=== PATIENT | female | born 1990 | race African-American/Black ===

== ENCOUNTER 2017-01-18 14:35 | Emergency (ER) | payer MEDICAID ==
[~2017-01-18] VITALS: Ht 165.1 cm; Wt 115.2 kg
[~2017-01-18 14:35] MED LIST: BEPREVE10 ML OP; CLARITIN-D 241 EACH PO; CLINDAMYCIN HC150 MG ORAL; CYCLOBENZAPRINE10 MG ORAL; IBUPROFEN600 MG ORAL; IBUPROFEN600 MG PO; NKM; PROAIR HFA8.5 GM INH
[2017-01-18] MEDS ORDERED: Norco 5mg/325mg tab ORAL ONE (16:00)
--- NOTE | 2017-01-18 16:34 | Emergency Room Report ---
History of Present Illness General Chief Complaint: Pain Source: Patient Present Illness HPI 26-year-old female presents emergency department complaining of bilateral posterior ankle pain progressive in nature over the course of 2 days. Patient also reports that today she felt a pop in the left ankle and had moderate increase in pain. Patient reports that she works on her feet and since 12 hours a day walking. Patient states that she believes pain increase slowly over time exacerbated with walking. Patient denies bruising patient reports mild swelling in the left ankle patient rates her pain as 7/10 in severity and is constant in nature patient also reports tenderness to the posterior ankles bilaterally. Patient denies previous injury. denies recent antibiotic use. Denies numbness tingling or loss of sensation or gross motor movements of the extremities, incontinence of bowel or bladder. Denies CP, Palpitations, LOC, AMS , dizziness, Changes in Vision, Sensation, paresthesias, or a sudden severe headache. Allergies: Coded Allergies: No Known Allergies (Verified Allergy, Unknown, 11/21/06) Patient History Past Medical History: see triage record Past Surgical History: none Pertinent Family History: none Last Menstrual Period: 01/09/17 Now: No Immunizations: UTD Reviewed Nursing Documentation: PMH: Agreed, PSxH: Agreed Nursing Documentation-PMH Past Medical History: No History, Except For Hx Asthma: Yes Review of Systems All Other Systems: negative except mentioned in HPI Physical Exam Vital Signs Date Time Temp Pulse Resp B/P Pulse Ox O2 Delivery O2 Flow Rate FiO2 01/18/17 14:59 97.3 77 14 102/64 98 Sp02 EP Interpretation: reviewed, normal General Appearance: no apparent distress, alert, GCS 15, non-toxic Head: normocephalic, atraumatic Eyes: bilateral eye PERRL, bilateral eye normal inspection ENT: hearing grossly normal, normal pharynx, no angioedema, normal voice Neck: full range of motion, supple/symm/no masses Respiratory: lungs clear, normal breath sounds, speaking full sentences Cardiovascular #1: regular rate, rhythm, no edema Cardiovascular #2: 2+ dorsalis pedis (R), 2+ dorsalis pedis (L) Musculoskeletal: back normal, gait/station normal, normal range of motion, non- tender, tender - TTp to the achillies tendons bilaterally and their insertion point on the heel, no bony ttp , no increased laxity. Neurologic: alert, oriented x3, responsive, motor strength/tone normal, sensory intact, speech normal Psychiatric: judgement/insight normal, memory normal, mood/affect normal, no suicidal/homicidal ideation Skin: normal color, no rash, warm/dry, well hydrated Lymphatic: no adenopathy Medical Decision Making PA Attestation Dr. Matos is my supervising Physician whom patient management has been discussed with. Diagnostic Impression: Primary Impression: Achilles tendinitis of both lower extremities Additional Impression: Left ankle sprain Qualified Codes: S93.402A - Sprain of unspecified ligament of left ankle, initial encounter ER Course 26-year-old female presents emergency department complaining of bilateral posterior ankle pain progressive in nature over the course of 2 days. Patient also reports that today she felt a pop in the left ankle and had moderate increase in pain. Patient reports that she works on her feet and since 12 hours a day walking. Patient states that she believes pain increase slowly over time exacerbated with walking. Patient denies bruising patient reports mild swelling in the left ankle patient rates her pain as 7/10 in severity and is constant in nature patient also reports tenderness to the posterior ankles bilaterally. Patient denies previous injury. Ddx considered but are not limited to Fracture, dislocation, contusion, Sprain/ Strain/Spasm, tendonitis Vital signs: are WNL, pt. is afebrile H&PE are most consistent with tendonitis will r/o skeletal injury ORDERS: - X-ray left ankle 3 views - negative for fx, Dislocation, or significant soft tissue injury, per official radiology report. ED INTERVENTIONS: - [place] PO -[place] wrap applied by property technician. Pt. remains neurovascularly intact. DISCHARGE: At this time pt. is stable for d/c to home. Will provide printed patient care instructions, and any necessary prescriptions. Care plan and follow up instructions have been discussed with the patient prior to discharge. Last Vital Signs Date Time Temp Pulse Resp B/P Pulse Ox O2 Delivery O2 Flow Rate FiO2 01/18/17 14:59 97.3 77 14 102/64 98 Disposition: HOME, SELF-CARE Condition: Stable Scripts Ibuprofen* (MOTRIN*) 600 Mg Tablet 600 MG ORAL THREE TIMES A DAY, #30 TAB 0 Refills Prov: Maribell Martínez 01/18/17 Referrals: [facility] STRONG,REFERRING (PCP) Departure Forms: Return to Work Return to Work Date: Jan 20, 2017 Work Restrictions: No Heavy Lifting, No Prolonged Standing, Desk Work Only Return to Full Activity: Feb 03, 2017 Patient Instructions: Achilles Tendinitis Additional Instructions: Take medications as directed. Follow up with PCP in 3-5 days Return sooner to ED if new symptoms occur, or current symptoms become worse. - Please note that this Emergency Department Report was dictated using [employer] operations consultant technology software, occasionally this can lead to erroneous entry secondary to interpretation by the dictation equipment. Maribell Martínez Jan 18, 2017 16:34
[2017-01-18] MEDS ORDERED: IBUPROFEN600 MG ORAL (16:51)
--- NOTE | 2017-01-18 17:04 | Diagnostic Imaging Report ---
Indication: PAIN Technique: 3 views of the left ankle Comparison: none Findings: No acute fractures. No dislocations. Joint spaces are preserved. Normal mineralization. No radiopaque foreign body. Impression: Negative
[2017-01-18 17:20] VITALS: BP 115/78
== END 2017-01-18 17:20 | disposition home or self-care (01) ==
LOC: EMR 15:21
DX: M76.62 Achilles tendinitis, left leg (principal); M76.61 Achilles tendinitis, right leg; X58.XXXA Exposure to other specified factors, initial encounter; S93.402A Sprain of unspecified ligament of left ankle, initial encounter; Y92.9 Unspecified place or not applicable; J45.909 Unspecified asthma, uncomplicated
CPT/HCPCS: 29540; 99283

== ENCOUNTER 2017-01-23 06:52 | Emergency (ER) | payer MEDICAID ==
[~2017-01-23] VITALS: Ht 165.1 cm; Wt 115.2 kg
[2017-01-23 07:17] VITALS: BP 128/81
--- NOTE | 2017-01-23 07:54 | Emergency Room Report ---
History of Present Illness General Chief Complaint: Earache Source: Patient Present Illness HPI This patient states that for the past few days she has had congestion and cough. She states that over the past day she has developed some left ear pain. She denies fever or chills. She has had sputum production. She denies headache or neck pain. She denies abdominal pain. She denies sore throat. She has no other complaints. Allergies: Coded Allergies: No Known Allergies (Verified , 01/23/17) Patient History Past Medical History: see triage record, asthma Past Surgical History: none Social History: Denies: alcohol use, drug use, smoking Last Menstrual Period: 2 weeks ago Now: No : 1 Para: 0 Reviewed Nursing Documentation: PMH: Agreed, PSxH: Agreed Nursing Documentation-PMH Past Medical History: No History, Except For Hx Asthma: Yes - bronchitis Review of Systems All Other Systems: negative except mentioned in HPI Physical Exam Vital Signs Date Time Temp Pulse Resp B/P Pulse Ox O2 Delivery O2 Flow Rate FiO2 01/23/17 07:07 98.2 89 16 128/81 97 01/23/17 07:17 Room Air Sp02 EP Interpretation: reviewed, normal General Appearance: no apparent distress, alert, GCS 15, non-toxic Head: normocephalic, atraumatic Eyes: bilateral eye PERRL, bilateral eye normal inspection ENT: hearing grossly normal, normal pharynx, no angioedema, normal voice, TMs + canals normal, uvula midline, moist mucus membranes Neck: full range of motion, supple/symm/no masses Respiratory: chest non-tender, no respiratory distress, no retraction, no accessory muscle use, speaking full sentences, wheezing Cardiovascular #1: regular rate, rhythm, no edema Gastrointestinal: normal bowel sounds, non tender, soft, non-distended, no guarding, no rebound Rectal: deferred Musculoskeletal: back normal, gait/station normal, normal range of motion, non- tender Neurologic: alert, oriented x3, responsive, motor strength/tone normal, sensory intact, speech normal Psychiatric: judgement/insight normal, memory normal, mood/affect normal, no suicidal/homicidal ideation Skin: normal color, no rash, warm/dry, well hydrated Medical Decision Making Diagnostic Impression: Primary Impression: URI (upper respiratory infection) Additional Impression: Asthma exacerbation ER Course This patient has a clinical presentation with upper respiratory tract infection. The evaluation was very reassuring with only slight wheezing on lung exam, no respiratory distress, normal pulse oximetry. I am not concerned for pneumonia in this patient. This is most likely viral and will not need antibiotic therapy. The patient does have some slight wheezing in a history of asthma. I will treat supportively with decongestants, albuterol inhaler, steroid and antihistamines. No emergency medical condition was identified. The patient was given close return precautions and followup instructions. Last Vital Signs Date Time Temp Pulse Resp B/P Pulse Ox O2 Delivery O2 Flow Rate FiO2 01/23/17 07:17 98.3 89 16 128/81 97 Room Air Disposition: HOME, SELF-CARE Condition: Improved MICHAEL KOWALSKI D.O. Jan 23, 2017 07:54
[2017-01-23] MEDS ORDERED: PSEUDOEPHEDRINE30 MG PO (07:58)
[2017-01-23] MEDS ORDERED: PREDNISONE20 MG ORAL (07:58)
[2017-01-23] MEDS ORDERED: CLARITIN10 M2 ORAL (07:58)
[2017-01-23] MEDS ORDERED: ALBUTEROL SULF8.5 GM INH (07:58)
[2017-01-23 08:11] VITALS: BP 126/74
== END 2017-01-23 08:10 | disposition home or self-care (01) ==
LOC: EMR 08:01
DX: J06.9 Acute upper respiratory infection, unspecified (principal); J45.901 Unspecified asthma with (acute) exacerbation
CPT/HCPCS: 99284

== ENCOUNTER 2018-01-21 12:24 | Emergency (ER) | payer MEDICAID ==
[~2018-01-21] VITALS: Ht 165.1 cm; Wt 115.7 kg
[~2018-01-21 12:24] MED LIST changes: +ALBUTEROL SULF8.5 GM INH; +CLARITIN10 M2 ORAL; +PREDNISONE20 MG ORAL; +PSEUDOEPHEDRINE30 MG PO
[2018-01-21] MEDS ORDERED: TRIAMCINOLONE A15 G1 TP (13:06)
[2018-01-21] MEDS ORDERED: ATHLETE S FOOT TP (13:06)
--- NOTE | 2018-01-21 13:06 | Emergency Room Report ---
History of Present Illness General Chief Complaint: Skin Rash/Abscess Present Illness HPI 27 yo female patient presents to ER complaining of reflux and rash on foot x2 weeks, Patient reports she wears sandals.. Patient complains of itching on foot; states tried OTC medication without relief of symptoms. Denies pain, burning, loss of sensation. Denies open wound or bleeding. Also reports acid reflux. States she eats lots of spicy foods. Denies fever, chest pain, SOB. Denies vomiting, or coughing up blood. (Chalino Manrique) Allergies: Coded Allergies: No Known Allergies (Verified , 01/23/17) Patient History Past Medical History: see triage record Last Menstrual Period: 1 week ago Reviewed Nursing Documentation: PMH: Agreed, PSxH: Agreed (Chalino Manrique) Nursing Documentation-PMH Hx Asthma: Yes - bronchitis (Chalino Manriqeu) Review of Systems All Other Systems: negative except mentioned in HPI (Chalino Manrique.Jaskaran) Physical Exam Vital Signs Date Time Temp Pulse Resp B/P (MAP) Pulse Ox O2 Delivery O2 Flow Rate FiO2 01/21/18 12:36 99.0 106 18 111/70 96 Room Air 99.0 Sp02 EP Interpretation: reviewed, normal General Appearance: well appearing, no apparent distress, alert, GCS 15 Head: normocephalic, atraumatic Eyes: bilateral eye normal inspection, bilateral eye PERRL ENT: hearing grossly normal, normal pharynx, no angioedema, normal voice, TMs + canals normal, uvula midline, moist mucus membranes Respiratory: lungs clear, normal breath sounds, no rhonchi, no respiratory distress, no accessory muscle use, no wheezing, speaking full sentences Cardiovascular #1: regular rate, rhythm, no edema Cardiovascular #2: 2+ dorsalis pedis (R), 2+ dorsalis pedis (L) Gastrointestinal: non tender, soft, no mass, non-distended, no guarding, no rebound Musculoskeletal: back normal, digits/nails normal, gait/station normal, normal range of motion, non-tender Neurologic: alert, oriented x3, responsive, motor strength/tone normal, sensory intact Psychiatric: mood/affect normal Skin: rash - right foot, on webspace between big toe and second toe on dorsum of foot, no TTP, no open drainage, no blisters, no linear burrows (Chalino Manrique) Medical Decision Making PA Attestation Dr. Ross is my supervising Physician whom patient management has been discussed with. (Chalino Manrique) Diagnostic Impression: Primary Impression: Rash and other nonspecific skin eruption Additional Impression: Acid reflux ER Course Pt. presents to the ED c/o rash and acid reflux. Ddx considered but are not limited to atopic dermatitis, contact dermatitis, tinea pedis. Patient reports history of heart burn symptoms after spicy food meals, never been diagnosed with GERD. Vital signs: are WNL, pt. is afebrile ER COURSE: Patient instructed that foot likely contact dermatitis, do not wear current sandals anymore. Will provide treatment for contact dermatitis and possible fungal infection. Followup with PCP and discuss referral to dermatology. Patient reports she will schedule appointment today. Patient advised on methods to avoid reflux symptoms. Will provide patient with Pepcid until followup with PCP. Patient instructed to followup with primary care provider for further treatment and referral to GI specialist. Return to ER immediately for chest pain, SOB, vomiting blood. Patient rash seen and evaluated by Dr. Ross, agrees with treatment and plan. DISCHARGE: Rx provided for Pepcid for acid reflux. Rx provided for Tolnaftate cream Rx provided for Triamcinolone cream At this time pt. is stable for d/c to home. Patient is resting comfortable, in no acute distress, nontoxic appearing, laughing and talking without difficulty. Will provide printed patient care instructions, and any necessary prescriptions. Care plan and follow up instructions have been discussed with the patient prior to discharge. Patient provided with list of healthcare clinics to establish primary care physician. Patient instructed to follow-up with primary care provider in 3 - 5 days. Patient questions asked and answered. Patient reports understanding and agreement to treatment plan. ER precautions given. Patient instructed to return to ER immediately for any new or worsening of symptoms including but not limited to increasing SOB, persistent fever. (Chalino Manrique) Last Vital Signs Date Time Temp Pulse Resp B/P (MAP) Pulse Ox O2 Delivery O2 Flow Rate FiO2 01/21/18 12:36 99.0 106 18 111/70 96 Room Air 99.0 (Chalino Manrique.Jaskaran) Last Vital Signs Date Time Temp Pulse Resp B/P (MAP) Pulse Ox O2 Delivery O2 Flow Rate FiO2 01/21/18 13:30 99.0 18 111/70 96 Room Air 99.0 01/21/18 13:30 66 (Rangel Ross M.D.) Disposition: HOME, SELF-CARE Condition: Stable Scripts Famotidine (PEPCID AC) 10 Mg Tablet 10 MG PO DAILY for 14 Days, #14 TAB Prov: Chalino Manrique 01/21/18 Triamcinolone Acetonide (TRIAMCINOLONE ACETONIDE) 15 Gm Cream..g. 15 GM TP BID for 10 Days, GM Prov: Chalino Manrique.A. 01/21/18 Tolnaftate (Athlete's Foot) 30 Gm Cream..g. 30 GM TP BID for 10 Days, GM Prov: Chalino Manrique.A. 01/21/18 Patient Instructions: Athlete's Foot, [id number], Contact Dermatitis, Easy-to -Read, Heartburn, [id number] Additional Instructions: Followup with primary care provider in 3 -5 days. Take medications as directed. Avoid spicy foods, elevate head of bed at night, no late night meals. Do no wear [employer] slides. Followup with dermatology. Patient questions asked and answered. ER precautions given, patient instructed to return to ER immediately for any new or worsening of symptoms. Chalino Manrique Jan 21, 2018 13:06 Rangel Ross M.D. Jan 23, 2018 02:27
[2018-01-21] MEDS ORDERED: PEPCID AC10 MG PO (13:10)
[2018-01-21 13:30] VITALS: BP_SYST 111; BP_SYST 121; BP_DIAS 70; BP_DIAS 77
== END 2018-01-21 13:40 | disposition home or self-care (01) ==
LOC: EMR 13:37
DX: R21 Rash and other nonspecific skin eruption (principal); K21.9 Gastro-esophageal reflux disease without esophagitis
CPT/HCPCS: 99283

== ENCOUNTER 2018-01-29 09:27 | Emergency (ER) | payer MEDICAID ==
[~2018-01-29] VITALS: Ht 167.6 cm; Wt 111.1 kg
[~2018-01-29 09:27] MED LIST changes: +ATHLETE S FOOT TP; +PEPCID AC10 MG PO; +TRIAMCINOLONE A15 G1 TP
--- NOTE | 2018-01-29 10:19 | Emergency Room Report ---
History of Present Illness General Chief Complaint: Nausea, Vomiting, and Diarrhea Source: Patient Present Illness HPI 27-year-old female with asthma p/w nausea and vomiting for 2 days Pt reports n/v, more then 10 episodes of nonbloody vomiting, now it's yellow in color, no diarrhea. Denies abdominal pain but complains of some back spasms Denies fever, chills. No hx of abdominal surgeries. No hx of endoscopies/colonoscopies. States that she uses marijuana chronically, states that this has happened before but this time is worse than before Allergies: Coded Allergies: No Known Allergies (Verified , 01/23/17) Patient History Past Medical History: see triage record Past Surgical History: none Pertinent Family History: none Last Menstrual Period: 2 weeks Now: No Reviewed Nursing Documentation: PMH: Agreed, PSxH: Agreed Nursing Documentation-PMH Past Medical History: No History, Except For Hx Asthma: Yes - bronchitis Review of Systems All Other Systems: negative except mentioned in HPI Physical Exam Vital Signs Date Time Temp Pulse Resp B/P (MAP) Pulse Ox O2 Delivery O2 Flow Rate FiO2 01/29/18 09:29 97.8 56 20 114/64 99 Room Air 97.9 Sp02 EP Interpretation: reviewed, normal General Appearance: alert, GCS 15, non-toxic, mild distress Head: normocephalic, atraumatic Eyes: bilateral eye normal inspection, bilateral eye PERRL, bilateral eye EOMI ENT: normal ENT inspection, normal pharynx, normal voice, moist mucus membranes Neck: normal inspection, full range of motion, supple Respiratory: normal inspection, lungs clear, normal breath sounds, no respiratory distress, no retraction, no wheezing, speaking full sentences, chest symmetrical Cardiovascular #1: normal inspection, regular rate, rhythm, no edema, normal capillary refill Cardiovascular #2: 2+ radial (R), 2+ radial (L) Gastrointestinal: normal inspection, non tender, soft, non-distended, no guarding Musculoskeletal: normal inspection, back normal, normal range of motion, non- tender Neurologic: normal inspection, alert, oriented x3, responsive, motor strength/ tone normal, sensory intact, normal gait, speech normal Psychiatric: normal inspection, judgement/insight normal, memory normal Skin: normal inspection, normal color, no rash, warm/dry, well hydrated, normal turgor Medical Decision Making Diagnostic Impression: Primary Impression: Nausea and vomiting ER Course 27-year-old female with nausea and vomiting for 3 days Differential Diagnosis: Gastritis, gastroenteritis, cyclic vomiting syndrome induced from marijuana At this time abdomen is soft nontender, not likely to have acute intra- abdominal surgical pathology, will hold CT for now. Plan: Basic labs Zofran, IVF ER course: Patient has remained stable during ED stay. No furhter episodes vomiting fluids given no abd pain Disposition: Patient is to be discharged to home. Prescriptions given are Zofran Patient is instructed to follow up with their primary care doctor within 5 days. Instructed to refrain from marijuana use Strict return precautions discussed with patient such as fever, chills, worsening/severe abdominal pain, nausea, vomiting, black or bloody stools, which may indicate severe illness. Patient verbalizes understanding and agrees with plan. Please note that this Emergency Department Report was dictated using [employer] s[employer] operator technology software, occasionally this can lead to erroneous entry secondary to interpretation by the dictation equipment Laboratory Tests Test 01/29/18 09:55 01/29/18 10:05 01/29/18 11:00 White Blood Count 8.4 K/UL (4.8-10.8) Red Blood Count 4.85 M/UL (4.20-5.40) Hemoglobin 13.3 G/DL (12.0-16.0) Hematocrit 40.9 % (37.0-47.0) Mean Corpuscular Volume 84 FL (80-99) Mean Corpuscular Hemoglobin 27.4 PG (27.0-31.0) Mean Corpuscular Hemoglobin Concent 32.4 G/DL (32.0-36.0) Red Cell Distribution Width 12.9 % (11.6-14.8) Platelet Count 295 K/UL (150-450) Mean Platelet Volume 8.1 FL (6.5-10.1) Neutrophils (%) (Auto) 74.2 % (45.0-75.0) Lymphocytes (%) (Auto) 20.4 % (20.0-45.0) Monocytes (%) (Auto) 3.7 % (1.0-10.0) Eosinophils (%) (Auto) 0.2 % (0.0-3.0) Basophils (%) (Auto) 1.5 % (0.0-2.0) Urine Color Yellow Urine Appearance Clear Urine pH 8 (4.5-8.0) Urine Specific Hiram 1.010 (1.005-1.035) Urine Protein 1+ (NEGATIVE) H Urine Glucose (UA) Negative (NEGATIVE) Urine Ketones Negative (NEGATIVE) Urine Occult Blood Negative (NEGATIVE) Urine Nitrite Negative (NEGATIVE) Urine Bilirubin Negative (NEGATIVE) Urine Urobilinogen Normal MG/DL (0.0-1.0) Urine Leukocyte Esterase 1+ (NEGATIVE) H Urine RBC 0-2 /HPF (0 - 2) Urine WBC 2-4 /HPF (0 - 2) Urine Squamous Epithelial Cells Few /LPF (NONE/OCC) Urine Bacteria Occasional /HPF (NONE) Urine HCG, Qualitative Negative (NEGATIVE) Sodium Level 140 MMOL/L (136-145) Potassium Level 4.2 MMOL/L (3.5-5.1) Chloride Level 106 MMOL/L (98-107) Carbon Dioxide Level 26 MMOL/L (21-32) Anion Gap 8 mmol/L (5-15) Blood Urea Nitrogen 14 mg/dL (7-18) Creatinine 0.7 MG/DL (0.55-1.30) Estimate Glomerular Filtration Rate > 60 mL/min (>60) Glucose Level 99 MG/DL (74-106) Calcium Level 8.0 MG/DL (8.5-10.1) L Total Bilirubin 0.2 MG/DL (0.2-1.0) Aspartate Amino Transferase (AST) 16 U/L (15-37) Alanine Aminotransferase (ALT) 27 U/L (12-78) Alkaline Phosphatase 60 U/L (46-116) Total Protein 7.1 G/DL (6.4-8.2) Albumin 3.3 G/DL (3.4-5.0) L Globulin 3.8 g/dL Albumin/Globulin Ratio 0.9 (1.0-2.7) L Lipase 55 U/L (73-393) L Last Vital Signs Date Time Temp Pulse Resp B/P (MAP) Pulse Ox O2 Delivery O2 Flow Rate FiO2 01/29/18 09:29 97.8 56 20 114/64 99 Room Air 97.9 Disposition: HOME, SELF-CARE Condition: Improved Scripts Ondansetron Odt* (ZOFRAN ODT*) 4 Mg Tab.rapdis 4 MG ORAL Q6H Y for Nausea & Vomiting, #15 TAB 0 Refills Prov: Jason Worthington M.D. 01/29/18 Jason Worthington M.D. Jan 29, 2018 10:19
[2018-01-29 10:22] LABS: APPEARANCE,URINE CLEAR; BILIRUBIN, URINE NEGATIVE (NEGATIVE); GLUCOSE, URINE (UA) NEGATIVE (NEGATIVE); KETONES,URINE NEGATIVE (NEGATIVE); LEUKOCYTE ESTERASE ,URINE 1+ (NEGATIVE); NITRITE,URINE NEGATIVE (NEGATIVE); PH,URINE 8 (4.5-8.0); PROTEIN,URINE 1+ (NEGATIVE); UROBILINOGEN,URINE NORMAL MG/DL (0.0-1.0)
[2018-01-29 10:24] LABS: BASOPHILS % (AUTO) 1.5 % (0.0-2.0); EOSINOPHILS % (AUTO) 0.2 % (0.0-3.0); HEMATOCRIT 40.9 % (37.0-47.0); HEMOGLOBIN 13.3 G/DL (12.0-16.0); LYMPHOCYTES % (AUTO) 20.4 % (20.0-45.0); MEAN CORPUSCULAR VOLUME 84 FL (80-99); MONOCYTES % (AUTO) 3.7 % (1.0-10.0); NEUTROPHILS % (AUTO) 74.2 % (45.0-75.0); PLATELET COUNT 295 K/UL (150-450); RED BLOOD COUNT 4.85 M/UL (4.20-5.40); RED CELL DISTRIBUTION WIDTH 12.9 % (11.6-14.8); WHITE BLOOD COUNT 8.4 K/UL (4.8-10.8)
[2018-01-29 10:30] LABS: COLOR,URINE YELLOW
[2018-01-29 11:19] LABS: ANION GAP 8 mmol/L (5-15); BLOOD UREA NITROGEN 14 mg/dL (7-18); CARBON DIOXIDE 26 MMOL/L (21-32); CHLORIDE 106 MMOL/L (98-107); CREATININE 0.7 MG/DL (0.55-1.30); POTASSIUM 4.2 MMOL/L (3.5-5.1); SODIUM 140 MMOL/L (136-145)
[2018-01-29 11:23] LABS: ALANINE AMINOTRANSFERASE 27 U/L (12-78); ALBUMIN 3.3 G/DL (3.4-5.0); ALBUMIN/GLOBULIN RATIO 0.9 (1.0-2.7); ALKALINE PHOSPHATASE 60 U/L (46-116); ASPARTATE AMINO TRANSFERASE 16 U/L (15-37); BILIRUBIN,TOTAL 0.2 MG/DL (0.2-1.0)
[2018-01-29] MEDS ORDERED: ZOFRAN ODT4 MG ORAL (11:25)
[2018-01-29 11:50] VITALS: BP 114/64
== END 2018-01-29 11:53 | disposition home or self-care (01) ==
LOC: EMR 11:48
DX: R12 Heartburn (principal)
CPT/HCPCS: 36415; 80053; 81003; 81025; 83690; 85025; 96361; 96374; 99284; J2405

== ENCOUNTER 2018-06-05 11:41 | Emergency (ER) | payer MEDICAID ==
[~2018-06-05] VITALS: Ht 167.6 cm; Wt 108.9 kg
[~2018-06-05 11:41] MED LIST changes: +ZOFRAN ODT4 MG ORAL
[2018-06-05 12:21] VITALS: BP 115/80
--- NOTE | 2018-06-05 13:04 | Emergency Room Report ---
History of Present Illness General Chief Complaint: Female Urogenital Problems Source: Patient, Medical Record Present Illness HPI 27-year-old female with no medical problems other than asthma presents with intermittent vaginal bleeding since yesterday she reports 2 pads a day, and she is concerned because she just finished her cycle one week ago. She reports mild crampy pain more in the left lower quadrant and right, reports it's mild to moderate and intermittent only. She denies abnormal vaginal discharge, denies urinary complaints, fevers, diarrhea constipation any other symptoms Allergies: Coded Allergies: No Known Allergies (Verified , 01/23/17) Patient History Past Medical History: see triage record Last Menstrual Period: 05/29/18 : 1 Para: 0 Reviewed Nursing Documentation: PMH: Agreed; PSxH: Agreed Nursing Documentation-PMH Hx Asthma: Yes - bronchitis Review of Systems All Other Systems: negative except mentioned in HPI Physical Exam Vital Signs Date Time Temp Pulse Resp B/P (MAP) Pulse Ox O2 Delivery O2 Flow Rate FiO2 06/05/18 12:05 98.2 92 18 113/79 96 Room Air 98.2 Sp02 EP Interpretation: reviewed, normal General Appearance: no apparent distress, alert, non-toxic Head: normocephalic Eyes: bilateral eye normal inspection, bilateral eye PERRL, bilateral eye EOMI ENT: normal ENT inspection, hearing grossly normal, normal pharynx, no angioedema, normal voice, moist mucus membranes Neck: normal inspection, full range of motion, supple, supple/symm/no masses Respiratory: chest non-tender, lungs clear, normal breath sounds, chest symmetrical, palpation of chest normal Cardiovascular #1: normal peripheral pulses, regular rate, rhythm Cardiovascular #2: 2+ radial (R), 2+ radial (L) Gastrointestinal: normal inspection, non tender, soft, no mass, no guarding, no rebound Rectal: deferred Genitourinary: normal inspection, no CVA tenderness Musculoskeletal: back normal, gait/station normal, normal range of motion, non- tender, no calf tenderness Neurologic: alert, responsive, account underwriter III-XII nml as tested, motor strength/tone normal, sensory intact, speech normal Psychiatric: judgement/insight normal, memory normal, mood/affect normal Skin: normal color, no rash, warm/dry, normal turgor Lymphatic: no adenopathy Medical Decision Making Diagnostic Impression: Primary Impression: Incomplete miscarriage Additional Impression: Ectopic ER Course 27-year-old female, hCG level of 28 presenting with vaginal bleeding, very minimal pelvic cramping, her last was. Phonic ago, she is likely undergone a spontaneous miscarriage, but will need a repeat hCG in 48-72 hours, she was explained this understood to either return to the ED in 48 hours or follow-up with her primary OB. CT/MRI/US Diagnostic Results CT/MRI/US Diagnostic Results : Imaging Test Ordered: pelvic US Impression no IUP, but no masses, no free fluid Last Vital Signs Date Time Temp Pulse Resp B/P (MAP) Pulse Ox O2 Delivery O2 Flow Rate FiO2 06/05/18 12:21 98.2 85 18 115/80 96 Room Air 98.2 Disposition: HOME, SELF-CARE Condition: Stable Referrals: [facility],REFERRING (PCP) JAYLIN VENCES M.D Jun 05, 2018 13:04
[2018-06-05 13:05] LABS: APPEARANCE,URINE SLIGHTLY CLOUDY; BILIRUBIN, URINE NEGATIVE (NEGATIVE); COLOR,URINE PALE YELLOW; GLUCOSE, URINE (UA) NEGATIVE (NEGATIVE); KETONES,URINE NEGATIVE (NEGATIVE); LEUKOCYTE ESTERASE ,URINE 1+ (NEGATIVE); NITRITE,URINE NEGATIVE (NEGATIVE); PH,URINE 6 (4.5-8.0); PROTEIN,URINE 2+ (NEGATIVE); UROBILINOGEN,URINE NORMAL MG/DL (0.0-1.0)
[2018-06-05 13:26] LABS: BASOPHILS % (AUTO) 1.4 % (0.0-2.0); EOSINOPHILS % (AUTO) 2.3 % (0.0-3.0); HEMATOCRIT 38.6 % (37.0-47.0); HEMOGLOBIN 12.3 G/DL (12.0-16.0); LYMPHOCYTES % (AUTO) 34.7 % (20.0-45.0); MEAN CORPUSCULAR VOLUME 84 FL (80-99); MONOCYTES % (AUTO) 4.5 % (1.0-10.0); NEUTROPHILS % (AUTO) 57.1 % (45.0-75.0); PLATELET COUNT 308 K/UL (150-450); RED BLOOD COUNT 4.62 M/UL (4.20-5.40); RED CELL DISTRIBUTION WIDTH 13.1 % (11.6-14.8); WHITE BLOOD COUNT 8.9 K/UL (4.8-10.8)
[2018-06-05 13:30] LABS: ANION GAP 9 mmol/L (5-15); BLOOD UREA NITROGEN 14 mg/dL (7-18); CALCIUM 8.9 MG/DL (8.5-10.1); CARBON DIOXIDE 26 MMOL/L (21-32); CHLORIDE 104 MMOL/L (98-107); CREATININE 0.8 MG/DL (0.55-1.30); POTASSIUM 4.3 MMOL/L (3.5-5.1); SODIUM 139 MMOL/L (136-145)
[2018-06-05 13:35] LABS: ALANINE AMINOTRANSFERASE 25 U/L (12-78); ALBUMIN 3.4 G/DL (3.4-5.0); ALBUMIN/GLOBULIN RATIO 0.8 (1.0-2.7); ALKALINE PHOSPHATASE 55 U/L (46-116); ASPARTATE AMINO TRANSFERASE 14 U/L (15-37); BILIRUBIN,TOTAL 0.3 MG/DL (0.2-1.0)
[2018-06-05 15:16] VITALS: BP 115/80
--- NOTE | 2018-06-05 15:16 | Diagnostic Imaging Report ---
Indication: Vaginal spotting and bleeding, positive test Technique: Transabdominal and transvaginal images Comparison: none Findings: Uterus measures 7.6 cm length by 3.4 cm AP. No myometrial abnormality. Endometrium measures 5 mm thick. No intrauterine gestational sac demonstrated. The right ovary measures 3.2 cm in length. The left ovary measures 2.7 cm length. Both ovaries demonstrate normal blood flow, no mass. No free cul-de-sac fluid Impression: No intrauterine demonstrated. Given positive test (reportedly beta hCG 28) findings could represent very early and therefore not yet visible intrauterine , spontaneous , or sonographically occult ectopic . Recommend correlation with serial beta hCGs, consider follow-up sonography as clinically indicated
== END 2018-06-05 15:19 | disposition home or self-care (01) ==
LOC: EMR 12:27
DX: O03.4 Incomplete spontaneous abortion without complication (principal); O00.90 Unspecified ectopic pregnancy without intrauterine pregnancy
CPT/HCPCS: 36415; 76801; 80053; 81003; 83690; 84702; 85025; 86900; 86901; 99284

== ENCOUNTER 2018-06-07 14:29 | Emergency (ER) | payer MEDICAID ==
[~2018-06-07] VITALS: Ht 167.6 cm; Wt 108.9 kg
[2018-06-07 15:32] VITALS: BP 119/73
--- NOTE | 2018-06-07 16:44 | Emergency Room Report ---
History of Present Illness General Chief Complaint: General Complaint Source: Patient Present Illness HPI 27-year-old female presents to the emergency department for repeat hCG quantitative lab work. Patient was seen here 2 days ago for irregular vaginal bleeding and she had a positive test. Her hCG was 25 and ultrasound was not able to identify a or ectopic. Patient has returned to check to see where hCG trend is going. Patient reports that she is actively attempting to become she is not taking control for over 2 years. She is . The patient states that her spotting has for the most part resolved and she is no longer having lower abdominal cramping since her last visit. She states that she was not able to make a timely appointment with an OB /GROUP CARE WORKER.Denies N/V/F/C. Allergies: Coded Allergies: No Known Allergies (Verified , 01/23/17) Patient History Past Medical History: see triage record Past Surgical History: none Pertinent Family History: none Last Menstrual Period: 05/29/18 : 1 Para: 0 Reviewed Nursing Documentation: PMH: Agreed; PSxH: Agreed Nursing Documentation-PMH Past Medical History: No History, Except For Hx Asthma: Yes - bronchitis Review of Systems All Other Systems: negative except mentioned in HPI Physical Exam Vital Signs Date Time Temp Pulse Resp B/P (MAP) Pulse Ox O2 Delivery O2 Flow Rate FiO2 06/07/18 14:58 98.6 94 18 119/73 95 Room Air 98.6 Sp02 EP Interpretation: reviewed, normal General Appearance: no apparent distress, alert, GCS 15, non-toxic Head: normocephalic, atraumatic ENT: hearing grossly normal, normal voice Neck: full range of motion Respiratory: lungs clear, normal breath sounds, speaking full sentences Cardiovascular #1: regular rate, rhythm Gastrointestinal: normal bowel sounds, non tender, soft Rectal: deferred Genitourinary: no CVA tenderness, adnexa normal, deferred Musculoskeletal: back normal, gait/station normal, normal range of motion, non- tender Neurologic: alert, oriented x3, responsive, motor strength/tone normal, sensory intact, normal gait, speech normal, grossly normal Psychiatric: judgement/insight normal Skin: normal color, no rash, warm/dry, well hydrated Lymphatic: no adenopathy Medical Decision Making PA Attestation Dr. Matos is my supervising Physician whom patient management has been discussed with. Diagnostic Impression: Primary Impression: Vaginal bleeding Additional Impressions: Abnormal human chorionic gonadotropin (hCG) Spontaneous miscarriage ER Course 27-year-old female presents to the emergency department for repeat hCG quantitative lab work. Patient was seen here 2 days ago for irregular vaginal bleeding and she had a positive test. Her hCG was 25 and ultrasound was not able to identify a or ectopic. Patient has returned to check to see where hCG trend is going. Patient reports that she is actively attempting to become she is not taking control for over 2 years. She is . The patient states that her spotting has for the most part resolved and she is no longer having lower abdominal cramping since her last visit. She states that she was not able to make a timely appointment with an OB /GROUP CARE WORKER.Denies N/V/F/C. Ddx considered but are not limited to: Fibroid, ectopic , Fibroid, Spontaneous , Vital signs: are WNL, pt. is afebrile H&PE are most consistent with: [ ] spotting during early , Inevitable , Spontaneous ORDERS: -serum Hcg Quant: 15 ED INTERVENTIONS: None at this time. -Discussed results with attending physician and has patient hCG is less than 25 and trending downward this patient is stable for outpatient follow-up and does not require urgent repeated hCG measuring. I discussed the results of laboratory testing with this patient and I encouraged her to follow-up with an WEB ENGINEER. Since this patient is actively attempting to become I recommended that she begin taking vitamins preemptively. Patient is also given ED return precautions for worsening or new symptoms. The patient and her have been verbalized their understanding and agreement with this proposed treatment plan. DISCHARGE: At this time pt. is stable for d/c to home. Will provide printed patient care instructions, and any necessary prescriptions. Care plan and follow up instructions have been discussed with the patient prior to discharge. Labs Test 06/07/18 15:30 Human Chorionic Gonadotropin, Quant 15 mIU/mL (1-6) Last Vital Signs Date Time Temp Pulse Resp B/P (MAP) Pulse Ox O2 Delivery O2 Flow Rate FiO2 06/07/18 15:32 98.6 79 18 119/73 95 Room Air 98.6 Disposition: HOME, SELF-CARE Condition: Stable Scripts Vit #91/Fe Fum/Fa/Dha ( + DHA COMBO PACK) 1 Each Combo..pkg 1 EACH PO DAILY, #1 PACK 2 Refills Prov: Maribell Martínez 06/07/18 Referrals: Mary Kate STRONG,REFERRING (PCP) Departure Forms: Return to Work Return to Work Date: Jun 11, 2018 Work Restrictions: None Other Restrictions: excuse from 06/07/18 Return to Full Activity: Jun 11, 2018 Patient Instructions: Folic Acid in Additional Instructions: Take medications as directed. Follow up with an OBGYN within 3 days, even if your symptoms have resolved. Let them know your first Hcg was 25, and repeat was 15. Return sooner to ED if new symptoms occur, or current symptoms become worse. - Please note that this Emergency Department Report was dictated using [employer] distributor technology software, occasionally this can lead to erroneous entry secondary to interpretation by the dictation equipment. Maribell Martínez Jun 07, 2018 16:44
[2018-06-07] MEDS ORDERED: PRENATAL + DHA1 EAC1 PO (17:20)
[2018-06-07 17:29] VITALS: BP 107/69
[2018-06-07 17:30] VITALS: BP 119/73
== END 2018-06-07 17:31 | disposition home or self-care (01) ==
LOC: EMR 15:19
DX: O03.9 Complete or unspecified spontaneous abortion without complication (principal)
CPT/HCPCS: 36415; 84702; 99283

== ENCOUNTER 2018-10-28 09:24 | Emergency (ER) | payer MEDICAID ==
[~2018-10-28] VITALS: Ht 167.6 cm; Wt 120.2 kg
[~2018-10-28 09:24] MED LIST changes: +PRENATAL + DHA1 EAC1 PO
[2018-10-28 10:18] LABS: APPEARANCE,URINE SLIGHTLY CLOUDY; BILIRUBIN, URINE NEGATIVE (NEGATIVE); COLOR,URINE PALE YELLOW; GLUCOSE, URINE (UA) NEGATIVE (NEGATIVE); KETONES,URINE NEGATIVE (NEGATIVE); LEUKOCYTE ESTERASE ,URINE 2+ (NEGATIVE); NITRITE,URINE NEGATIVE (NEGATIVE); PH,URINE 7 (4.5-8.0); PROTEIN,URINE NEGATIVE (NEGATIVE); UROBILINOGEN,URINE NORMAL MG/DL (0.0-1.0)
--- NOTE | 2018-10-28 11:48 | Emergency Room Report ---
History of Present Illness General Chief Complaint: Complications Source: Patient Present Illness HPI This patient states she's been getting intermittent nausea and some vomiting over the past week. She was concerned she may be . She took a home test that was positive. She denies abdominal pain. She states the first day of her last menstrual period was the second of last month. She denies vaginal bleeding. She denies abnormal vaginal discharge. She denies dysuria or hematuria. She has no other complaints. Allergies: Coded Allergies: No Known Allergies (Verified , 01/23/17) Patient History Past Medical History: see triage record, asthma Social History: Denies: smoking, alcohol use, drug use Last Menstrual Period: 11-7 Now: Yes Reviewed Nursing Documentation: PMH: Agreed; PSxH: Agreed Nursing Documentation-PMH Past Medical History: No History, Except For Hx Asthma: Yes - bronchitis Review of Systems All Other Systems: negative except mentioned in HPI Physical Exam Vital Signs Date Time Temp Pulse Resp B/P (MAP) Pulse Ox O2 Delivery O2 Flow Rate FiO2 10/28/18 09:40 99.1 83 18 113/71 98 Room Air Sp02 EP Interpretation: reviewed, normal General Appearance: no apparent distress, alert, GCS 15, non-toxic Head: normocephalic, atraumatic Eyes: bilateral eye normal inspection, bilateral eye PERRL ENT: hearing grossly normal, normal pharynx, no angioedema, normal voice Neck: full range of motion, supple/symm/no masses Respiratory: no respiratory distress, no retraction, no accessory muscle use, speaking full sentences Gastrointestinal: no guarding, no rebound Rectal: deferred Musculoskeletal: back normal, gait/station normal, normal range of motion, non- tender Neurologic: alert, oriented x3, responsive, motor strength/tone normal, sensory intact, speech normal Psychiatric: judgement/insight normal, memory normal, mood/affect normal, no suicidal/homicidal ideation Skin: normal color, no rash, warm/dry, well hydrated Medical Decision Making Diagnostic Impression: Primary Impression: UTI (urinary tract infection) Additional Impression: ER Course This patient is positive for . Her hCG is over 26,000. She has no pain and so I do not suspect ectopic. She is instructed to follow-up with an OB or her primary care physician. She is also instructed to obtain vitamins. Urinalysis is contaminated, however, given the patient is I will go ahead and treat with a course of Keflex as a precaution. I will also give the patient dissolvable Zofran for her nausea. She is given close return precautions and follow-up instructions. Please note that this Emergency Department Report was dictated using [employer] extension agent technology software, occasionally this can lead to erroneous entry secondary to interpretation by the dictation equipment. Laboratory Tests Test 10/28/18 09:50 10/28/18 10:40 Urine Color Pale yellow Urine Appearance Slightly cloudy Urine pH 7 (4.5-8.0) Urine Specific [place] 1.010 (1.005-1.035) Urine Protein Negative (NEGATIVE) Urine Glucose (UA) Negative (NEGATIVE) Urine Ketones Negative (NEGATIVE) Urine Blood Negative (NEGATIVE) Urine Nitrite Negative (NEGATIVE) Urine Bilirubin Negative (NEGATIVE) Urine Urobilinogen Normal MG/DL (0.0-1.0) Urine Leukocyte Esterase 2+ (NEGATIVE) H Urine RBC 2-4 /HPF (0 - 2) H Urine WBC 5-10 /HPF (0 - 2) H Urine Squamous Epithelial Cells Few /LPF (NONE/OCC) Urine Bacteria Few /HPF (NONE) Human Chorionic Gonadotropin, Quant Pending Last Vital Signs Date Time Temp Pulse Resp B/P (MAP) Pulse Ox O2 Delivery O2 Flow Rate FiO2 10/28/18 09:40 99.1 83 18 113/71 98 Room Air Status: improved Disposition: HOME, SELF-CARE Condition: Improved Referrals: Mary Kate STRONG,REFERRING (PCP) Janet Matos DO Oct 28, 2018 11:48
[2018-10-28] MEDS ORDERED: CEPHALEXIN500 MG ORAL (11:50)
[2018-10-28 12:01] VITALS: BP 115/72
== END 2018-10-28 12:00 | disposition home or self-care (01) ==
LOC: EMR 10:55
DX: O23.41 Unspecified infection of urinary tract in pregnancy, first trimester (principal); O26.891 Other specified pregnancy related conditions, first trimester; R11.2 Nausea with vomiting, unspecified
CPT/HCPCS: 36415; 81003; 84702; 99283

== ENCOUNTER 2020-11-11 09:07 | Emergency (ER) | payer MEDICAID ==
[~2020-11-11] VITALS: Ht 167.6 cm; Wt 134.3 kg
[~2020-11-11 09:07] MED LIST changes: +CEPHALEXIN500 MG ORAL
--- NOTE | 2020-11-11 09:15 | NUR ---
ED Nurse Note: Pt walked in to ED runny nose, cough and itchy throat onset yesterday. Denies chills/ fever. Pt is requesting for a work note. HAs hx of asthma. AAOx4, verbally responsive. No SOB, on room air.
[2020-11-11 09:16] VITALS: BP 105/76
--- NOTE | 2020-11-11 09:16 | NUR ---
Note waltone in EDM - 11/11/20 at 0918 by BUSHRA ED Nurse Note: Pt walked in to ED left quadrant abdominal pain, nausea, vomiting onset today at 0200. Denies fever. Pt took Tylenol. Has hx of asthma. AAOx4, verbally responsive. No SOB, on room air.
--- NOTE | 2020-11-11 09:43 | Emergency Room Report ---
History of Present Illness General Chief Complaint: Flu Like Symptoms Source: Patient Present Illness HPI Patient is a 30-year-old female presents for increased nasal congestion and cough. Reports having increased nonproductive cough. Had prior history of asthma. Had not been vomiting. Denies any abdominal pain. Increased nasal congestion. Denies any fevers. Had run out of her inhaler. Denies any shor tness of breath. Patient reports having multiple sick contacts at home. Onset of symptoms approximately 2 days prior to arrival. Allergies: Coded Allergies: No Known Allergies (Verified , 01/23/17) COVID-19 Screening Contact w/high risk pt: No Experienced COVID-19 symptoms?: No COVID-19 Testing performed METALLURGIST PROCESS: Yes - 11/06/20 COVID-19 Screening: Negative COVID-19 COVID-19 Testing Source: clinic Patient History Past Medical History: see triage record, asthma Past Surgical History: none Last Menstrual Period: 11/08/20 Now: No Reviewed Nursing Documentation: PMH: Agreed; PSxH: Agreed Nursing Documentation-PMH Hx Asthma: Yes - bronchitis Review of Systems All Other Systems: negative except mentioned in HPI Physical Exam Vital Signs Date Time Temp Pulse Resp B/P (MAP) Pulse Ox O2 Delivery O2 Flow Rate FiO2 11/11/20 09:10 98.2 88 19 105/76 (86) 98 Room Air Sp02 EP Interpretation: reviewed, normal General Appearance: normal inspection, no apparent distress, alert, GCS 15 Head: atraumatic ENT: normal ENT inspection, hearing grossly normal, normal voice Neck: normal inspection, full range of motion, supple, no bony tend Respiratory: normal inspection, lungs clear, normal breath sounds, no respiratory distress, no retraction, no wheezing Cardiovascular #1: regular rate, rhythm, no edema Gastrointestinal: normal inspection, normal bowel sounds, non tender, soft, no guarding, no hernia Genitourinary: no CVA tenderness Musculoskeletal: normal inspection, back normal, normal range of motion Neurologic: alert, motor strength/tone normal, didactic program in dietetics director III-XII nml as tested, oriented x3, responsive, speech normal, normal inspection Psychiatric: normal inspection, judgement/insight normal, mood/affect normal Medical Decision Making Diagnostic Impression: Primary Impression: Asthma Additional Impression: Viral upper respiratory infection ER Course Patient presented for increased nasal congestion. Differential diagnosis inclu de was not limited to allergic rhinitis, viral respiratory infection, coronavirus infection among others. Patient has a benign exam and does not appear to require any imaging or laboratory testing at this time. Patient was seen during pandemic and coronavirus testing was sent. Rapid coronavirus testing was performed due to patients risk factors for progression which include obesity and lung disease. Patient was given prescription for inhaler as well as oral steroids. She was advised to return if worse. This medical record is generated with [employer] rubber goods tester software. There may be some rubber goods tester discrepancies related to use of this software Last Vital Signs Date Time Temp Pulse Resp B/P (MAP) Pulse Ox O2 Delivery O2 Flow Rate FiO2 11/11/20 09:16 88 19 Room Air 11/11/20 09:16 98.2 105/76 98 Status: improved Disposition: HOME, SELF-CARE Condition: Stable Roberto Leung MD Nov 11, 2020 09:43
[2020-11-11] MEDS ORDERED: ALBUTEROL SULF8.5 G1 INH (10:19)
[2020-11-11] MEDS ORDERED: PREDNISONE20 MG ORAL (10:19)
[2020-11-11] MEDS ORDERED: LORATADINE10 M1 PO (10:19)
[2020-11-11 10:24] VITALS: BP 105/76
--- NOTE | 2020-11-11 10:24 | NUR ---
ED Nurse Note: Pt cleared by ERMD for discharge. DC instructions/prescription was given and explained to pt and verbalized understanding of teachings. All medical deviecs such as ID band removed. Pt is AAO x4, ambulatory and left with all personal belongings.
== END 2020-11-11 10:24 | disposition home or self-care (01) ==
LOC: EMR 09:55
DX: J45.909 Unspecified asthma, uncomplicated (principal); J06.9 Acute upper respiratory infection, unspecified; Z79.899 Other long term (current) drug therapy
CPT/HCPCS: U0002; U0004; Z7502; 99283